=== PATIENT | female | born 1995 | race Caucasian/White ===

== ENCOUNTER 2019-02-25 13:46 | Emergency (ER) | payer BC, OTHER ==
[~2019-02-25] VITALS: Ht 170.2 cm; Wt 64.0 kg
[2019-02-25 13:54] VITALS: BP 108/72
[2019-02-25 14:32] LABS: Basophils # (auto) 0 uL; Basophils % (auto) 0.2 % (0.0-2.0); Eosinophils # (auto) 0.2 uL; Eosinophils % (auto) 1.7 % (0.0-7.0); Hematocrit 40.6 % (36.0-46.0); Hemoglobin 13.7 g/dL (12.2-16.2); Lymphocytes # (auto) 1.8 uL; Lymphocytes % (auto) 16.5 % (10.0-50.0); Mean Corpuscular Hemoglobin 29.6 pg (28.0-32.0); Mean Corpuscular Hgb Conc. 33.6 g/dL (32.0-36.0); Mean Corpuscular Volume 87.9 fL (80.0-100.0); Monocytes # (auto) 0.6 uL; Neutrophils # (auto) 8.4 uL; Neutrophils % (auto) 76.6 % (37.0-80.0); Platelet Count (auto) 267 10^3/uL (140-450); Red Blood Cells 4.62 10^6/uL (4.0-5.20); Red Cell Distribution Width 13.1 % (11.8-14.3)
[2019-02-25 14:55] LABS: Calcium 9.3 mg/dL (8.5-10.1); Potassium 3.9 mmol/L (3.5-5.1)
[2019-02-25 14:59] LABS: BUN/Creatinine Ratio 13.6; Bilirubin, Total 0.4 mg/dL (0.2-1.0); Total Protein 7.9 g/dL (6.4-8.2)
== END 2019-02-25 16:45 | disposition left against medical advice (07) ==
LOC: EDBD 13:46 → ER 13:50
DX: R55 Syncope and collapse (principal); Z53.21 Procedure and treatment not carried out due to patient leaving prior to being seen by health care provider
CPT/HCPCS: 36415; 80053; 84702; 85025; 93005

== ENCOUNTER 2019-10-02 03:40 | Inpatient (IN) | payer BC ==
[~2019-10-02] VITALS: Ht 165.1 cm; Wt 82.6 kg
[2019-10-02] MEDS ORDERED: LACTATED RINGER'S 1,000 ML IV SCH (04:24)
[2019-10-02] MEDS ORDERED: LACT. RINGERS/OXYTOCIN 20UNITS 1,000 ML IV SCH (04:24)
[2019-10-02] MEDS ORDERED: METHYLERGONOVINE MALEATE 0.2 MG/ML AMP IM PRN (04:30)
[2019-10-02] MEDS ORDERED: LIDOCAINE 2%HCL (LOCAL ANESTH.) INJ 20ML MDV IJ ONE (04:30)
[2019-10-02] MEDS ORDERED: PHISODERM TOP SOLN 240ML BTL TOP PRN (04:30)
[2019-10-02] MEDS ORDERED: WITCH HAZEL-GLYCERIN PAD TOP PRN (04:30)
[2019-10-02] MEDS ORDERED: PENICILLIN G POT 5MIL/D5 50ML 50 ML IV ONE (04:30)
[2019-10-02] MEDS ORDERED: DERMOPLAST 60ML BOTTLE TOP PRN (04:30)
[2019-10-02 05:13] LABS: Basophils # (auto) 0 uL; Basophils % (auto) 0.3 % (0.0-2.0); Eosinophils # (auto) 0.4 uL; Hematocrit 36.8 % (36.0-46.0); Hemoglobin 12.2 g/dL (12.2-16.2); Lymphocytes # (auto) 1.8 uL; Lymphocytes % (auto) 14.9 % (10.0-50.0); Mean Corpuscular Hemoglobin 29.3 pg (28.0-32.0); Mean Corpuscular Hgb Conc. 33.2 g/dL (32.0-36.0); Mean Corpuscular Volume 88.4 fL (80.0-100.0); Monocytes # (auto) 0.7 uL; Monocytes % (auto) 5.8 % (0.0-12.0); Platelet Count (auto) 212 10^3/uL (140-450); Red Blood Cells 4.17 10^6/uL (4.0-5.20); Red Cell Distribution Width 14.4 % (11.8-14.3); White Blood Cell 11.9 10^3/uL (4.4-10.8)
[2019-10-02 05:27] LABS: Alcohol, Urine < 3.0 mg/dL (0-5); Amphetamine Screen, Urine NEGATIVE (NEGATIVE); Barbiturate Scree,Urine NEGATIVE (NEGATIVE); Benzodiazephine Screen, Urine NEGATIVE (NEGATIVE); Cannabinoid Screen, Urine NEGATIVE (NEGATIVE); Cocaine Screen, Urine NEGATIVE (NEGATIVE); Opiate Scree,Urine NEGATIVE (NEGATIVE); Phencyclidine Screen, Urine NEGATIVE (NEGATIVE); Urine Bacteria FEW /hpf (None Seen); Urine Blood Negative /uL (Negative); Urine Mucus FEW (None Seen); Urine Specific Gravity 1.007 (1.001-1.035); Urine WBC <1 /hpf (0 - 5)
[2019-10-02 05:28] LABS: Albumin 2.6 g/dL (3.4-5.0); BUN/Creatinine Ratio 14.8; Calcium 8.5 mg/dL (8.5-10.1)
[2019-10-02 05:31] LABS: Bilirubin, Total 0.2 mg/dL (0.2-1.0)
[2019-10-02] MEDS ORDERED: miSOPROStol 50 MCG per PRE-CUT 1/2 TAB PO PRN (05:45)
[2019-10-02] MEDS ORDERED: BUTORPHANOL TARTRATE 2 MG/1 ML VIAL IV PRN (05:45)
[2019-10-02 06:10] LABS: INR 0.91 (0.9-1.15); Partial Thromboplastin Time 25.6 sec (23.64-32.05)
[2019-10-02] MEDS ORDERED: ACYC1CAP23 PO (06:21)
[2019-10-02] MEDS ORDERED: ASPI-404 PO (06:22)
[2019-10-02] MEDS ORDERED: PREN-153 OR (06:22)
[2019-10-02] MEDS ORDERED: PENICILLIN G POTASSIUM 2,500,000 UNITS in D5W 5% 50 ML IV SCH (08:30)
[2019-10-02] MEDS ORDERED: IBUPROFEN 600 MG TAB PO PRN (10:15)
[2019-10-02 12:21] VITALS: BP 126/57
[2019-10-02 14:30] VITALS: BP 116/62
[2019-10-02 19:00] VITALS: BP 116/57
[2019-10-02 23:16] VITALS: BP 122/64
[2019-10-03 03:22] VITALS: BP 128/63
[2019-10-03 07:00] VITALS: BP 124/59
[2019-10-03] MEDS ORDERED: TETANUS-DIPTH-ACEL PERTUSSIS 0.5ML SYRG IM ONE (08:00)
[2019-10-03 10:58] VITALS: BP 113/65
== END 2019-10-03 13:34 | disposition home or self-care (01) | DRG 807 ==
LOC: LDRP 03:40
PROVIDERS: ADMIT Specialist; ATTEND Specialist
PROC: 10E0XZZ Delivery of Products of Conception, External Approach (ICD-10-PCS; principal; 2019-10-02)
PROC: 0W8NXZZ Division of Female Perineum, External Approach (ICD-10-PCS; 2019-10-02)
DX: O80 Encounter for full-term uncomplicated delivery (principal); Z37.0 Single live birth; Z3A.38 38 weeks gestation of pregnancy
CPT/HCPCS: 36415; 59025; 59409; 80053; 80307; 81001; 84112; 85025; 85610; 85730; 86592; 86703; 86762; 86850; 86900; 86901; 87340; 90715; 96365; 96366; 96372; 96374; G0378; J2540; J2590; J7060

== ENCOUNTER → 2020-11-08 | Outpatient (CLI) | payer BC ==
[~2020-11-08] MED LIST: ACYC1CAP23 PO; PREN1TAB71 OR
[2020-11-08 11:37] LABS: Basophils # (auto) 0.1 10 ^3/uL (0-0.2); Basophils % (auto) 0.7 % (0.0-2.0); Eosinophils # (auto) 0.6 10 ^3/uL (0-0.8); Eosinophils % (auto) 4.3 % (0.0-7.0); Hemoglobin 12.1 g/dL (12.2-16.2); Lymphocytes # (auto) 1.6 10 ^3/uL (0.4-5.4); Mean Corpuscular Hemoglobin 29.5 pg (28.0-32.0); Mean Corpuscular Hgb Conc. 33.5 g/dL (32.0-36.0); Mean Corpuscular Volume 88.1 fL (80.0-100.0); Monocytes # (auto) 0.5 10 ^3/uL (0-1.3); Monocytes % (auto) 3.6 % (0.0-12.0); Neutrophils # (auto) 11.9 10 ^3/uL (1.6-8.6); Neutrophils % (auto) 80.4 % (37.0-80.0); Nucleated Red Blood Cells % 0.1 %; Platelet Count (auto) 254 10^3/uL (140-450); Red Blood Cells 4.09 10^6/uL (4.0-5.20); Red Cell Distribution Width 14.1 % (11.8-14.3); White Blood Cell 14.8 10^3/uL (4.4-10.8)
== END | disposition home or self-care (01) ==
LOC: LAB 10:49
PROVIDERS: ATTEND Specialist
DX: O99.810 Abnormal glucose complicating pregnancy (principal); Z3A.25 25 weeks gestation of pregnancy
CPT/HCPCS: 36415; 82951; 85025

== ENCOUNTER 2021-02-10 08:03 | Observation (INO) | payer SELFPAY | END 2021-02-10 09:59 | disposition home or self-care (01) | LOC: LDRP 08:03 | PROVIDERS: ADMIT Specialist; ATTEND Specialist | DX: O48.0 Post-term pregnancy (principal); Z3A.40 40 weeks gestation of pregnancy; Z87.891 Personal history of nicotine dependence | CPT/HCPCS: 59025; 76818; 81002; 94760; G0378 ==

== ENCOUNTER 2021-02-12 04:40 | Observation (INO) | payer SELFPAY ==
[~2021-02-12] VITALS: Ht 165.1 cm; Wt 83.9 kg
== END 2021-02-12 06:42 | disposition home or self-care (01) ==
LOC: LDRP 04:40
PROVIDERS: ADMIT Specialist; ATTEND Specialist
DX: O62.9 Abnormality of forces of labor, unspecified (principal); Z3A.40 40 weeks gestation of pregnancy
CPT/HCPCS: 59025; 76818; 81002; 94760; G0378

== ENCOUNTER 2021-02-12 14:10 | Inpatient (IN) | payer BC ==
[~2021-02-12] VITALS: Ht 165.1 cm; Wt 84.4 kg
[2021-02-12] MEDS ORDERED: WITCH HAZEL-GLYCERIN PAD TOP PRN (14:30)
[2021-02-12] MEDS ORDERED: LACTATED RINGER'S 1,000 ML IV SCH (14:30)
[2021-02-12] MEDS ORDERED: LACT. RINGERS/OXYTOCIN 20UNITS 500 ML IV ONE ×2 (14:30→15:00)
[2021-02-12] MEDS ORDERED: PHISODERM TOP SOLN 240ML BTL TOP PRN (14:30)
[2021-02-12] MEDS ORDERED: DERMOPLAST 60ML BOTTLE TOP PRN (14:30)
[2021-02-12 15:10] LABS: Basophils # (auto) 0 10 ^3/uL (0-0.2); Basophils % (auto) 0.2 % (0.0-2.0); Eosinophils # (auto) 0.1 10 ^3/uL (0-0.8); Eosinophils % (auto) 0.7 % (0.0-7.0); Hematocrit 34.9 % (36.0-46.0); Hemoglobin 12.1 g/dL (12.2-16.2); Lymphocytes # (auto) 1.6 10 ^3/uL (0.4-5.4); Mean Corpuscular Hgb Conc. 34.5 g/dL (32.0-36.0); Mean Corpuscular Volume 83.9 fL (80.0-100.0); Monocytes # (auto) 0.8 10 ^3/uL (0-1.3); Monocytes % (auto) 4.4 % (0.0-12.0); Neutrophils # (auto) 15.6 10 ^3/uL (1.6-8.6); Neutrophils % (auto) 85.7 % (37.0-80.0); Nucleated Red Blood Cells % 0.1 %; Platelet Count (auto) 241 10^3/uL (140-450); Red Blood Cells 4.16 10^6/uL (4.0-5.20); Red Cell Distribution Width 14.6 % (11.8-14.3); White Blood Cell 18.2 10^3/uL (4.4-10.8)
[2021-02-12 15:20] LABS: Urine Bacteria NONE SEEN /hpf (None Seen); Urine Blood Negative /uL (Negative); Urine Specific Gravity 1.008 (1.001-1.035); Urine WBC <1 /hpf (0 - 5)
[2021-02-12 15:22] LABS: INR 0.93 (0.9-1.15); Partial Thromboplastin Time 23.9 sec (23.0-31.2)
[2021-02-12 15:26] LABS: Alcohol, Urine < 3.0 mg/dL (0-10); Amphetamine Screen, Urine NEGATIVE (NEGATIVE); Barbiturate Scree,Urine NEGATIVE (NEGATIVE); Benzodiazephine Screen, Urine NEGATIVE (NEGATIVE); Cannabinoid Screen, Urine NEGATIVE (NEGATIVE); Cocaine Screen, Urine NEGATIVE (NEGATIVE); Opiate Scree,Urine NEGATIVE (NEGATIVE); Phencyclidine Screen, Urine NEGATIVE (NEGATIVE)
[2021-02-12 15:41] LABS: Albumin 2.7 g/dL (3.4-5.0); Calcium 8.5 mg/dL (8.5-10.1); Potassium 3.5 mmol/L (3.5-5.1)
[2021-02-12 15:44] LABS: BUN/Creatinine Ratio 10.2
[2021-02-12 15:48] LABS: Bilirubin, Total 0.3 mg/dL (0.2-1.0); Total Protein 7.2 g/dL (6.4-8.2)
[2021-02-12] MEDS: LIDOCAINE 2%HCL (LOCAL ANESTH.) INJ 20ML MDV IJ PRN ×2 (16:00→17:09)
[2021-02-12] MEDS: IBUPROFEN 600 MG TAB PO PRN ×2 (17:25→21:10)
[2021-02-12 18:30] VITALS: BP 112/57
[2021-02-12 23:00] VITALS: BP 87/54
[2021-02-13 03:00] VITALS: BP 96/56
[2021-02-13] MEDS: IBUPROFEN 600 MG TAB PO PRN ×3 (03:34→16:30)
[2021-02-13 06:06] LABS: RPR Non Reactive (Non Reactive)
[2021-02-13 07:00] VITALS: BP 116/68
[2021-02-13 10:46] VITALS: BP 117/64
[2021-02-13 15:00] VITALS: BP 114/70
== END 2021-02-13 18:05 | disposition home or self-care (01) | DRG 807 ==
LOC: LDRP 14:10 → OBSVTOIN 14:35 → LDRP 18:16
PROVIDERS: ADMIT Specialist; ATTEND Specialist
PROC: 10E0XZZ Delivery of Products of Conception, External Approach (ICD-10-PCS; principal; 2021-02-12)
PROC: 10907ZC Drainage of Amniotic Fluid, Therapeutic from Products of Conception, Via Natural or Artificial Opening (ICD-10-PCS; 2021-02-12)
PROC: 0W8NXZZ Division of Female Perineum, External Approach (ICD-10-PCS; 2021-02-12)
DX: O80 Encounter for full-term uncomplicated delivery (principal); Z37.0 Single live birth; Z3A.40 40 weeks gestation of pregnancy; Z20.822 Contact with and (suspected) exposure to COVID-19
CPT/HCPCS: 36415; 59025; 59409; 80053; 80307; 81001; 81002; 85025; 85049; 85610; 85730; 86592; 86850; 86900; 86901; 87426; 94760; 96360; 96361; 96365; 96366; G0378; J2590

== ENCOUNTER 2022-04-05 08:59 | Emergency (ER) | payer BC ==
[~2022-04-05] VITALS: Ht 165.1 cm; Wt 81.0 kg
[2022-04-05 10:00] VITALS: BP 129/83
[2022-04-05 10:24] LABS: Albumin 4.1 g/dL (3.4-5.0); Calcium 9.2 mg/dL (8.5-10.1); Potassium 3.7 mmol/L (3.5-5.1)
[2022-04-05 10:28] LABS: Basophils # (auto) 0 10 ^3/uL (0-0.2); Basophils % (auto) 0.2 % (0.0-2.0); Eosinophils # (auto) 0.6 10 ^3/uL (0-0.8); Eosinophils % (auto) 5.5 % (0.0-7.0); Hematocrit 43.4 % (36.0-46.0); Hemoglobin 14.9 g/dL (12.2-16.2); Lymphocytes # (auto) 1.5 10 ^3/uL (0.4-5.4); Lymphocytes % (auto) 14.9 % (10.0-50.0); Mean Corpuscular Hemoglobin 29.5 pg (28.0-32.0); Mean Corpuscular Hgb Conc. 34.2 g/dL (32.0-36.0); Mean Corpuscular Volume 86.1 fL (80.0-100.0); Monocytes # (auto) 0.5 10 ^3/uL (0-1.3); Monocytes % (auto) 4.5 % (0.0-12.0); Neutrophils # (auto) 7.7 10 ^3/uL (1.6-8.6); Neutrophils % (auto) 74.9 % (37.0-80.0); Red Blood Cells 5.05 10^6/uL (4.0-5.20); Red Cell Distribution Width 13.4 % (11.8-14.3); White Blood Cell 10.3 10^3/uL (4.4-10.8)
[2022-04-05 10:29] LABS: BUN/Creatinine Ratio 11.9; Bilirubin, Total 0.5 mg/dL (0.2-1.0); Total Protein 7.9 g/dL (6.4-8.2)
[2022-04-05] MEDS ORDERED: CIPR-173 PO (11:21)
[2022-04-05] MEDS ORDERED: LOPE2TAB99 PO (11:21)
[2022-04-05 12:21] LABS: Urine Bacteria FEW /hpf (None Seen); Urine Mucus FEW (None Seen); Urine WBC <1 /hpf (0 - 5)
[2022-04-05 12:29] LABS: Urine Specific Gravity 1.036 (1.001-1.035)
[2022-04-05 12:30] LABS: Urine Blood Negative /uL (Negative)
== END 2022-04-05 11:25 | disposition home or self-care (01) ==
LOC: ER 08:59
DX: K52.9 Noninfective gastroenteritis and colitis, unspecified (principal)
CPT/HCPCS: 36415; 74176; 80053; 81001; 85025; 99284; J7030

== ENCOUNTER 2025-01-18 11:33 | Outpatient (CLI) | payer OTHER ==
[~2025-01-18 11:33] MED LIST changes: -ACYC1CAP23 PO; +ACYC200C22 PO; +CIPR-173 PO; +LOPE2TAB99 PO
[2025-01-19 11:07] LABS: Mumps IgG Antibody 93.9 AU/mL (Immune >10.9); Rubeola IgG Antibody >300.0 AU/mL (Immune >16.4); Varicella Zoster IgG Antibody Reactive (Non Reactive)
== END 2025-01-18 17:00 | disposition home or self-care (01) ==
LOC: LAB 11:33
PROVIDERS: ATTEND Emergency Medicine
DX: Z01.84 Encounter for antibody response examination (principal)
CPT/HCPCS: 36415; 86706; 86735; 86762; 86765; 86787